=== PATIENT | female | born 1955 | race Caucasian/White ===

== ENCOUNTER 2016-12-29 16:24 | Emergency (ER) | payer BC, OTHER ==
[2016-12-29] MEDS ORDERED: Diphtheria,Pertussis(Acell),Tetanus Vaccine 0.5 ML SDV IM ONE (16:29)
[2016-12-29] MEDS ORDERED: Sodium Chloride 0.9% 1,000 ML IV SCH (16:45)
[2016-12-29] MEDS ORDERED: Lidocaine 1% 20 ML MDV INJECT ONE (16:55)
[2016-12-29] MEDS ORDERED: Bacitracin Oint 1 GM U/D Packet TOP ONE (16:55)
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
[2016-12-29 19:54] VITALS: BP 112/51
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
--- NOTE | 2016-12-31 08:46 | CR ---
Knee 1V or 2V Rt HISTORY: Swelling COMPARISON: None FINDINGS: No fracture or effusion. Minimal chondrocalcinosis in the medial and lateral compartment. N o bony destructive process.
== END 2016-12-29 19:57 | disposition home or self-care (01) ==
LOC: JP.ED 16:24
DX: S42.022A Displaced fracture of shaft of left clavicle, initial encounter for closed fracture (principal); S01.81XA Laceration without foreign body of other part of head, initial encounter; S80.01XA Contusion of right knee, initial encounter; F10.929 Alcohol use, unspecified with intoxication, unspecified; F17.210 Nicotine dependence, cigarettes, uncomplicated; Z79.899 Other long term (current) drug therapy; Z23 Encounter for immunization; V87.7XXA Person injured in collision between other specified motor vehicles (traffic), initial encounter
CPT/HCPCS: 12054; 36415; 70450; 71010; 72125; 73000; 73030; 73560; 80053; 85025; 90471; 90715; 96360; 96361; 99284; A4217; G0480; J7040

== ENCOUNTER 2018-06-09 06:16 | Day surgery (SDC) | payer BC ==
[2018-06-09] MEDS ORDERED: Lactated Ringers 1,000 ML IV SCH (07:00)
[2018-06-09] MEDS ORDERED: Propofol 200 MG/20 ML SDV ONE ×2 (07:30→07:54)
[2018-06-09] MEDS ORDERED: fentaNYL 100 MCG/2 ML SDV ONE (07:31)
[2018-06-09] MEDS ORDERED: Midazolam 1 MG/ML 2 ML SDV ONE (07:31)
[2018-06-09 09:17] VITALS: BP 130/75
--- NOTE | 2018-06-12 13:44 | OR ---
DATE OF PROCEDURE: 06/09/2018 PREOPERATIVE DIAGNOSIS: History of colon polyps. POSTOPERATIVE DIAGNOSES: Small polyp 25 cm from the anal verge, diverticulosis , history of colon polyps. PROCEDURE PERFORMED: Colonoscopy to the cecum with biopsy resection of small polyp 25 cm from the anal verge. SURGEON: Abner Laguna MD ANESTHESIA: IV anesthesia with monitored anesthesia care. INDICATION: This 62-year-old white female is referred for a colonoscopy. She has history of colon polyps. She is suppose to have colonoscopic exams every 5 years, but she says the last one was 10 years ago. I counseled her for the procedure, including risks and alternatives, and she gave her informed consent to proceed. DESCRIPTION OF PROCEDURE: The patient was placed in the left lateral decubitus position. IV anesthesia was administered by the Anesthesia Service. Time-out was held. A rectal exam was performed, which was unremarkable. The flexible video Olympus colonoscope was introduced through her anus, up her rectum, and out her colon all the way to the cecum. To accomplish this, we did apply a little abdominal compression. En route, we saw a few scattered left-sided diverticula. There was no bleeding or inflammation associated with them. Once the cecum was reached, the scope was slowly withdrawn, examining the mucosa throughout. No additional mucosal abnormalities were noted until we reached 25 cm from the anal verge. Here, a small polyp was seen, which was removed with the biopsy forceps. The scope was brought back in the rectum, where it was retroflexed. The distal rectum was unremarkable except for some hemorrhoidal tissue. The scope was straightened and removed. She tolerated the procedure well. Abner Laguna MD /[id number] MTDD
== END 2018-06-09 09:15 | disposition home or self-care (01) ==
LOC: JP.SDS 06:16
PROVIDERS: ATTEND Surgery
DX: Z12.11 Encounter for screening for malignant neoplasm of colon (principal); K57.30 Diverticulosis of large intestine without perforation or abscess without bleeding; K63.89 Other specified diseases of intestine; E78.00 Pure hypercholesterolemia, unspecified; F17.200 Nicotine dependence, unspecified, uncomplicated; F41.9 Anxiety disorder, unspecified; Z88.6 Allergy status to analgesic agent; Z86.010 Personal history of colon polyps
CPT/HCPCS: 45380; 88305; J2250; J2704; J3010; J7120

== ENCOUNTER 2018-12-17 11:42 | Emergency (ER) | payer MEDICARE, BC ==
[2018-12-17] MEDS ORDERED: HYDROmorphone 0.5 MG/0.5 ML Syringe IVPUSH ONE ×2 (11:56→12:14)
[2018-12-17] MEDS ORDERED: Sodium Chloride 0.9% 10 ML Syringe FLUSH PRN (11:56)
--- NOTE | 2018-12-17 11:59 | EDM.PDOC ---
ED HPI GENERAL MEDICAL PROBLEM - General Stated Complaint: FELL ON ICE WHILE WALKING DOG Time Seen by Provider: 12/17/18 11:55 Source of Information: Reports: Patient History Limitations: Reports: No Limitations - History of Present Illness INITIAL COMMENTS - FREE TEXT/NARRATIVE: 63 yo female presents to ER for acute left wrist fracture after fall this afternoon while walking the dog. The leash jerk and patient fell on outstretched left hand. Patient is right handed. Patient denies hitting her head or any additional injuries or concerns. Patient has been able to walk without difficulty. Patient denies previous injury or surgery involving left wrist. Multiple other orthopedic surgeries in the past. Patient is on Gabapentin but no recent change medication dosing. Patient is on Naltrexone but only as needed and last dose was a few days ago. Narcotic pain medication may not be as effective was explained to patient. - Related Data Allergies Allergy/AdvReac Type Severity Reaction Status Date / Time aspirin AdvReac Abdominal Verified 12/17/18 12:15 Pain Home Meds: Home Meds FLUoxetine [PROzac] 40 mg PO DAILY 12/23/15 [History] Simvastatin [Zocor] 10 mg PO BEDTIME 12/23/15 [History] traZODone 100 mg PO BEDTIME 12/23/15 [History] Gabapentin [Neurontin] 300 - 600 mg PO TID 02/01/18 [History] Multivit with Iron,Minerals [Spectravite Senior] 1 each PO DAILY 02/01/18 [ History] Naltrexone 1 tab PO DAILY 02/01/18 [History] Rutin/Hesp/Bioflav/C/Herb#196 [Bioflex] 1 each PO DAILY 02/01/18 [History] Ascorbic Acid [Acerola C] 240 mg PO DAILY 06/07/18 [History] Cholecalciferol (Vitamin D3) [Vitamin D3] 3,000 unit PO DAILY 06/07/18 [History] Lactobac Cmb #3/Fos/Pantethine [Probiotic & Acidophilus] 1 each PO DAILY [History] Acetaminophen/oxyCODONE [Percocet 325-5 MG] 1 - 2 each PO Q6H PRN 5 Days #20 tab 12/17/18 [Rx] Past Medical History HEENT History: Reports: Impaired Vision Cardiovascular History: Reports: High Cholesterol Respiratory History: Reports: None Gastrointestinal History: Reports: None, Colon Polyp Genitourinary History: Reports: None 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 left shoulder pain. right shoulder pain Neurological History: Reports: None Psychiatric History: Reports: Addiction, Anxiety, Depression, OCD Endocrine/Metabolic History: Reports: Osteopenia Hematologic History: Reports: Blood Transfusion(s) Immunologic History: Reports: None Oncologic (Cancer) History: Reports: None Dermatologic History: Reports: None - Infectious Disease History Infectious Disease History: Reports: Chicken Pox, Measles, Mumps - Past Surgical History HEENT Surgical History: Reports: None Cardiovascular Surgical History: Reports: None GI Surgical History: Reports: Colonoscopy Female Surgical History: Reports: Tubal Ligation Endocrine Surgical History: Reports: None Musculoskeletal Surgical History: Reports: Hip Replacement, Shoulder Surgery Social & Family History - Caffeine Use Caffeine Use: Reports: Coffee Review of Systems - Review of Systems Review Of Systems: ROS reveals no pertinent complaints other than HPI. ED EXAM, GENERAL - Physical Exam Exam: See Below Exam Limited By: No Limitations General Appearance: Alert, WD/WN, Severe Distress Eye Exam: Bilateral Eye: EOMI, PERRL Ears: Normal External Exam, Normal Canal, Hearing Grossly Normal Nose: Normal Inspection, Normal Mucosa Throat/Mouth: Normal Inspection, Normal Lips, Normal Teeth, Normal Voice Head: Atraumatic, Normocephalic Neck: Normal Inspection, Supple, Non-Tender, Full Range of Motion Respiratory/Chest: No Respiratory Distress, Lungs Clear, Normal Breath Sounds, No Accessory Muscle Use, Chest Non-Tender Cardiovascular: Normal Peripheral Pulses, Regular Rate, Rhythm, No Edema, No Gallop, No JVD, No Murmur, No Rub Peripheral Pulses: 4+: Radial (L) Extremities: Arm Pain (Left wrist with obvious volar displaced distal radius and ulnar fracture noted. Skin intact. Normal sensation. ) Neurological: Alert, Oriented, CN II-XII Intact, Normal Cognition, Normal Gait, Normal Reflexes, No Motor/Sensory Deficits Psychiatric: Normal Affect, Normal Mood Skin Exam: Warm, Dry, Intact, Normal Color, No Rash ED TRAUMA EXTREMITY PROCEDURES - Joint Reduction Site: Other (left distal radius and ulnar fracture reduction. ) Sedation: Hematoma/Fracture Block Local Anesthesia - Bupivicaine (Marcaine): 0.5% Plain Local Anesthetic Volume: Other (15) Pre-Procedure NV Status: Normal Post-Procedure NV Status: Normal Technique: Traction/Counter Traction, Other (finger traps) Number of Attempts: 1 Post-Reduction Imaging: Acceptably Reduced Joint Reduction Complications: No Progress/Comments: Sugar tong splint applied. Post Reduction films reviewed. - Splinting Left Upper Extremity Pre-Procedure NV Status: Normal (good radial pulse noted. Good papillary refill) Post-Procedure NV Status: Normal Splint Material: Fiberglass Splint Design: Sugar Tong Applied & Form Fitted By: Provider Provider Post-Splint Application NV Check: NV Status Normal, Good Position ( psot reduction film completed ), Other (sling (patient's own) ) Complications: No - Additional/Other Procedure(s) Other (Free Text) Procedure(s): HEMATOMA BLOCK Left Wrist for Acute Colles fracture of distal radius and ulna. Sensorcaine 0.5% with Epi: 15 cc injected using a 25G 1 1/2 in needle. Area was Prepped with Betadine. Anesthetic was instilled in to the area with drawing back intermittently and advancing over the fracture lines of the distal radius and ulna. Patient noted increased pain with pressure over the injured area but pain improve slightly within 2-3 minutes. Course - Vital Signs Last Recorded V/S: Last Vital Signs Temp 36.0 C 12/17/18 12:22 Pulse 71 12/17/18 12:22 Resp 16 12/17/18 12:22 BP 118/57 L 12/17/18 12:22 Pulse Ox 98 12/17/18 12:22 - Orders/Labs/Meds Orders: Active Orders 24 hr Category Date Time Status Peripheral IV Care [RC] . DIRECTED Care 12/17/18 11:56 Active Wrist Comp Min 3V Lt [CR] Stat Exams 12/17/18 14:40 Ordered Acetaminophen/oxyCODONE [Percocet 325-5 MG] Med 12/17/18 14:41 Ordered 2 tab PO ONETIME PRN Sodium Chloride 0.9% [Saline Flush] Med 12/17/18 11:56 Active 10 ml FLUSH ASDIRECTED PRN Peripheral IV Insertion Adult [OM.PC] Urgent Oth 12/17/18 11:56 Ordered Medication Orders Sodium Chloride (Saline Flush) 10 ml FLUSH ASDIRECTED PRN PRN Reason: Keep Vein Open Last Admin: 12/17/18 12:37 Dose: 10 ml Meds: Medications Generic Name Dose Route Start Last Admin Trade Name Freq PRN Reason Stop Dose Admin Sodium Chloride 10 ml 12/17/18 11:56 12/17/18 12:37 Saline Flush FLUSH 10 ml ASDIRECTED PRN Administration Keep Vein Open Discontinued Medications Generic Name Dose Route Start Last Admin Trade Name Freq PRN Reason Stop Dose Admin Bupivacaine HCl/Epinephrine Bitart 50 ml 12/17/18 12:01 12/17/18 12:37 Marcaine 0.5%/Epinephrine 1:200,000 NERVRT 12/17/18 12:02 50 ml ONETIME ONE Administration Hydromorphone HCl 0.5 mg 12/17/18 11:56 12/17/18 12:37 Dilaudid IVPUSH 12/17/18 11:57 0.5 mg ONETIME ONE Administration Hydromorphone HCl 0.5 mg 12/17/18 12:14 12/17/18 12:37 Dilaudid IVPUSH 12/17/18 12:15 0.5 mg ONETIME ONE Administration Ketorolac Tromethamine 15 mg 12/17/18 12:15 12/17/18 12:37 Toradol IVPUSH 12/17/18 12:16 15 mg ONETIME ONE Administration - Re-Assessments/Exams Free Text/Narrative Re-Assessment/Exam: Contacted available Orthopedist regarding patient presentation with severely displaced wrist fracture which will likely need surgical intervention. Fracture reduction in ER and closed follow-up advised. 12/17/18 13:25 Much improved post reduction alignment noted. Pain is much improved with splinting and pain medications. 12/17/18 15:00 Departure - Departure Time of Disposition: 15:00 Disposition: Home, Self-Care 01 Clinical Impression: Fracture of radius and ulna, Fall - Discharge Information Prescriptions: Acetaminophen/oxyCODONE [Percocet 325-5 MG] 1 - 2 each PO Q6H PRN 5 Days #20 tab PRN Reason: pain Instructions: Cast or Splint Care, Adult, Wrist Fracture Treated With Immobilization, [id number] Referrals: Sary Avila CNM [Primary Care Provider] - Taz Park MD [Physician] - 2 Days (Call Office Tuesday am for appointment and possible surgery on Tuesday. Nothing to eat or drink after 12am on Tuesday for possible surgey. Follow clinic instructions. ) Forms: ED Department Discharge Additional Instructions: 1. Keep left arm elevated above heart as much as possible. 2. Percocet 1-2 tablets every 6 hours as needed for moderate to severe pain. 3. Ice 15-20minutes 3-4 times per day. 4. Call Orthopedic clinic Dr Park on Tuesday for follow-up and possible surgery on Tuesday (depending on schedule and specialist evaluation). 5. Return to ER if worsening pain or not controlled with medications given or new concerns. - Problem List & Annotations (1) Fall SNOMED Code(s): 2423245, 533964186 Code(s): W19.XXXA - UNSPECIFIED FALL, INITIAL ENCOUNTER Status: Acute Current Visit: Yes (2) Fracture of radius and ulna SNOMED Code(s): 67615471 Code(s): S52.90XA - UNSP FRACTURE OF UNSP FOREARM, INIT FOR CLOS FX; S52.209A - UNSP FRACTURE OF SHAFT OF UNSP ULNA, INIT FOR CLOS FX Status: Acute Current Visit: Yes - My Orders Last 24 Hours: My Active Orders 12/17/18 11:56 Peripheral IV Care [RC] . DIRECTED Sodium Chloride 0.9% [Saline Flush] 10 ml FLUSH ASDIRECTED PRN Peripheral IV Insertion Adult [OM.PC] Urgent 12/17/18 14:40 Wrist Comp Min 3V Lt [CR] Stat 12/17/18 14:41 Acetaminophen/oxyCODONE [Percocet 325-5 MG] 2 tab PO ONETIME PRN - Assessment/Plan Last 24 Hours: My Active Orders 12/17/18 11:56 Peripheral IV Care [RC] . DIRECTED Sodium Chloride 0.9% [Saline Flush] 10 ml FLUSH ASDIRECTED PRN Peripheral IV Insertion Adult [OM.PC] Urgent 12/17/18 14:40 Wrist Comp Min 3V Lt [CR] Stat 12/17/18 14:41 Acetaminophen/oxyCODONE [Percocet 325-5 MG] 2 tab PO ONETIME PRN
[2018-12-17] MEDS ORDERED: Bupivacaine 0.5%/EPINEPHrine 1:200,000 50 ML MDV NERVRT ONE (12:01)
[2018-12-17] MEDS ORDERED: Ketorolac 30 MG/ML SDV IVPUSH ONE (12:15)
[2018-12-17 12:46] VITALS: BP 118/57; PULSE 71
--- NOTE | 2018-12-17 14:02 | CRLCR ---
Indication: Fall with obvious displaced fracture. Technique: Left wrist three views. Comparison: Left forearm same day. Findings: There is a comminuted impacted intra-articular and dorsally displaced fracture of the distal radius and dorsally displaced fracture of the ulnar styloid. No additional evidence of fracture. Moderate degenerative changes of the 1st carpal metacarpal joint. Diffuse soft tissue swelling about the wrist. No radiopaque foreign body. Impression: Comminuted dorsally displaced fracture of the distal radius and dorsally displaced fracture of the ulnar styloid. Dictated by Jonh Cotter MD @ Dec 17 2018 1:59PM Signed by Dr. John Cotter @ Dec 17 2018 2:01PM
--- NOTE | 2018-12-17 14:20 | CRLCR ---
Indication: Fall with obvious fracture. Technique: Left forearm two views. Comparison: Left wrist same day. Findings: Comminuted impacted intra-articular and dorsally displaced fracture of the distal radius with associated proximal migration of the distal fracture fragment is again demonstrated. Dorsally displaced fracture of the ulnar styloid, as before. The proximal left forearm shows no acute osseous abnormality. Mild degenerative changes of the ulnohumeral joint. Degenerative changes of the wrist, as before. Soft tissue swelling about the wrist. No radiopaque foreign body. Impression: Comminuted dorsally displaced fracture of the distal radius and dorsally displaced fracture of the ulnar styloid. Dictated by Jonh Cotter MD @ Dec 17 2018 2:16PM Signed by Dr. Jonh Cotter @ Dec 17 2018 2:18PM
[2018-12-17] MEDS ORDERED: Acetaminophen/oxyCODONE 325-5 MG Tab PO PRN (14:41)
--- NOTE | 2018-12-17 15:14 | CRLCR ---
Indication: Fracture post reduction. Technique: Left wrist three views. Comparison: Left wrist same day. Findings: Casting material obscures fine bone detail. Dorsal displacement/angulation of comminuted distal radius fracture persists but has improved status post reduction. Near anatomic alignment of ulnar styloid fracture. No new osseous abnormality demonstrated. Impression: Dorsal displacement/angulation of distal radius fracture persists but has improved status post reduction. Dictated by Jonh Cotter MD @ Dec 17 2018 3:11PM Signed by Dr. Jonh Cotter @ Dec 17 2018 3:13PM
== END 2018-12-17 15:21 | disposition home or self-care (01) ==
LOC: JP.ED 11:42
DX: S52.572A Other intraarticular fracture of lower end of left radius, initial encounter for closed fracture (principal); S52.612A Displaced fracture of left ulna styloid process, initial encounter for closed fracture; Z88.6 Allergy status to analgesic agent; Z79.899 Other long term (current) drug therapy; W19.XXXA Unspecified fall, initial encounter
CPT/HCPCS: 25605; 73090; 73110; 96374; 96375; 99283; A9270; J1170; J1885; J3490; 25560

== ENCOUNTER 2020-10-27 05:18 | Day surgery (SDC) | payer MEDICARE ==
[2020-10-27] MEDS ORDERED: Lactated Ringers 1,000 ML IV SCH (06:00)
[2020-10-27] MEDS ORDERED: Nozin Nasal Sanitizer NASBOTH ONE (06:30)
[2020-10-27] MEDS ORDERED: Povidone-Iodine 10% Soln 118.25 ML Bottle ONE (06:39)
[2020-10-27] MEDS ORDERED: Propofol 200 MG/20 ML SDV ONE ×2 (07:20→08:15)
[2020-10-27] MEDS ORDERED: fentaNYL 100 MCG/2 ML SDV ONE (07:20)
[2020-10-27] MEDS ORDERED: Midazolam 1 MG/ML 2 ML SDV ONE (07:20)
[2020-10-27] MEDS ORDERED: ceFAZolin 2 GM in Premix Bag 1 BAG IV ONE (07:30)
[2020-10-27] MEDS ORDERED: Lactated Ringers 1,000 ML ONE (08:15)
[2020-10-27] MEDS ORDERED: Acetaminophen/HYDROcodone 325-5 MG Tab PO PRN (09:32)
[2020-10-27] MEDS ORDERED: Morphine 2 MG/ML SYRINGE IV PRN (09:32)
[2020-10-27] MEDS ORDERED: Acetaminophen 325 MG Tab PO PRN (09:32)
[2020-10-27] MEDS ORDERED: Gabapentin 300 MG Cap PO PRN (09:36)
[2020-10-27] MEDS ORDERED: Ketorolac 30 MG/ML SDV IVPUSH PRN (09:40)
[2020-10-27] MEDS ORDERED: Ondansetron 4 MG/2 ML SDV IVPUSH ONE (09:43)
[2020-10-27] MEDS ORDERED: ceFAZolin 1 GM in Sodium Chloride 0.9% 50 ML IV SCH (09:45)
--- NOTE | 2020-10-27 10:14 | CR ---
Pelvis 1V or 2V CLINICAL HISTORY: Total hip arthroplasty FINDINGS: Patient is status post recent right total hip arthroplasty. Components appear well seated. Left hip arthroplasty appears intact. IMPRESSION: Status post recent right total hip arthroplasty
[2020-10-27] MEDS ORDERED: Sodium Chloride 0.9% 1,000 ML IV SCH (11:30)
[2020-10-27] MEDS: ceFAZolin 1 GM in Premix Bag 1 BAG IV SCH ×2 (16:10→23:32)
[2020-10-27] MEDS: Acetaminophen/oxyCODONE 325-5 MG Tab PO PRN ×2 (17:35→21:24)
[2020-10-27] MEDS ORDERED: Docusate Sodium 100 MG Cap PO SCH (21:00)
[2020-10-27] MEDS ORDERED: ASCORBIC ACID 500 MG PO SCH (21:00)
[2020-10-27] MEDS: Docusate Sodium 100 MG Cap PO SCH (21:27)
[2020-10-27] MEDS: Nozin Nasal Sanitizer NASBOTH SCH (21:27)
[2020-10-28] MEDS: Acetaminophen/oxyCODONE 325-5 MG Tab PO PRN (02:50)
[2020-10-28] MEDS: Ondansetron 4 MG/2 ML SDV IVPUSH PRN ×2 (02:52→09:40)
[2020-10-28] MEDS: ceFAZolin 1 GM in Premix Bag 1 BAG IV SCH (07:39)
[2020-10-28] MEDS ORDERED: Acetaminophen/oxyCODONE 325-5 MG Tab PO PRN (08:01)
[2020-10-28] MEDS ORDERED: traMADol 50 MG Tab PO PRN (08:01)
[2020-10-28] MEDS ORDERED: Enoxaparin 30 MG/0.3 ML Syringe SUBCUT SCH ×2 (09:00)
[2020-10-28] MEDS ORDERED: FLUoxetine 20 MG Cap PO SCH ×2 (09:00)
[2020-10-28] MEDS: Nozin Nasal Sanitizer NASBOTH SCH (09:43)
[2020-10-28] MEDS: Docusate Sodium 100 MG Cap PO SCH (09:43)
[2020-10-28] MEDS ORDERED: Ondansetron 4 MG Tab.DIS PO PRN (09:48)
[2020-10-28] MEDS ORDERED: Acetaminophen 500 MG Tab PO PRN (11:38)
[2020-10-28 12:35] VITALS: BP 121/56; PULSE 77
--- NOTE | 2020-10-28 12:43 | PCM.DCSUM1 ---
Discharge Summary - Hospital Course Brief History: Patient is a pleasant 65 y/o female, history of right hip avascular necrosis. Symptoms refractory to conservative management and elected to undergo a right total hip arthroplasty. Does have history of left hip AVN and also underwent a left CAMACHO a few years prior. Right hip total arthroplasty was performed on 10/27/20. Patient tolerated surgery well with no complications. No acute events during post-operative hospitalization. Remained hemodynamically stable and is suitable for discharge to home. Diagnosis: Stroke: No Modified Spink Scale: No Symptoms at All Modified Spink Scale Score: 0 - Discharge Data Discharge Date: 10/28/20 Discharge Disposition: Home, Self-Care 01 Condition: Good - Referral to Home Health Date of Face to Face Encounter: 10/28/20 Reason for Homebound Status: motivated to go home, independent with transfers, a mbulation, and ADLs. Primary Care Physician: Sary Avila CNM - Discharge Diagnosis/Problem(s) (1) Status post total hip replacement, right SNOMED Code(s): 716070405497, [id number] ICD Code: Z96.641 - PRESENCE OF RIGHT ARTIFICIAL HIP JOINT Status: Acute Current Visit: Yes - Patient Summary/Data Consults: Consultations 10/27/20 09:32 Consult to Case Management/Woodwork Salvage Inspector [CONS] Routine Comment: Physician Instructions: Discharge placement post hip surgery Service(s) to be Consulted: Case Management Special Instructions: anticipate dc to home when medically stable with out patient PT PT Evaluation and Treatment [CONS] Routine Please Evaluate and Treat. PT Reason for Consult: Ambulation Special Instructions: posterior hip precautions, WBAT This query below is only for informational purposes and is not editable. PT Evaluation and Treatment [CONS] Routine Please Evaluate and Treat. PT Reason for Consult: Post op Ortho Surgery Hip Pending Discharge: Yes, 2- -3 days Special Instructions: Schedule first outpatient P.T. appointment 3 - 5 days post discharge This query below is only for informational purposes and is not editable. 10/27/20 09:35 OT Evaluation and Treatment [CONS] Routine Please Evaluate and Treat. OT Reason for Consult: ADL's Special Instructions: Status post Hip Surgery, WBAT on RLE This query below is only for informational purposes and is not editable. Hospital Course: Patient is a pleasant 65-year-old female, status post right total hip arthroplasty, post-op day #1. Patient tolerated surgery well with no complications. No acute events during the postoperative hospitalization period. Patient has remained hemodynamically stable. Postop day #1 hemoglobin declined to 10.6. Patient remains asymptomatic with this; denied lightheadedness, dizziness, nor vision changes. Patient also denied subjective fevers, chills, dyspnea, nor chest pain. Patient has had difficulty tolerating any oral pain medications without nausea. Trialed oral percocet, norco, and tramadol, all with nausea or emesis. Medication was paired with light food to reduce nausea/emesis, but co- administration of pain medication with food did not seem to reduce nausea and emesis side effects. Zofran was utilized prn. Transition was made to extra strength Tylenol and patient tolerated this medication without nausea/emesis and adequate pain control. Patient participated in physical and occupational therapy sessions daily while in the hospital. Patient's functional mobility of right lower extremity has imp roved throughout hospitalization. Demonstrated competency transferring from bed to chair independently. Ambulated 120 feet with four-wheel walker and standby assist. Demonstrated competency completing ADLs with minimal assistance and adaptive equipment. Moise catheter removed the evening of surgery. IV saline locked and dressing change performed on POD#1. Exam: Right posterior tibial pulse, 2+. Sensation to RLE impaired per patients baseline pre-operatively. Right hip incision well approximated and intact. Steri-Strips above incision with dried drainage. No surrounding erythema nor active drainage of incision. Ice pack on right hip, unable to accurately assess temperature. Diffuse edema of the right hip extending into thigh. No pedal edema. No palpable hematoma nor significant ecchymosis of right hip. Dorsiflexion: 4/5. Plantar flexion: 5/5. Calf is soft and supple. Negative homans sign. - Patient Instructions Diet: Regular Diet as Tolerated Activity: Apply Ice Driving: Do Not Drive Showering/Bathing: Shower in AM Wound/Incision Care: Keep Operative Site/Wound Site Clean and Dry Notify Provider of: Fever, Increased Pain, Swelling and Redness, Drainage - Discharge Plan *PRESCRIPTION DRUG MONITORING PROGRAM REVIEWED*: Yes *COPY OF PRESCRIPTION DRUG MONITORING REPORT IN PATIENT MARCELINO: Not Applicable Home Medications: Home Meds FLUoxetine [PROzac] 40 mg PO DAILY 12/23/15 [History] Simvastatin [Zocor] 10 mg PO BEDTIME 12/23/15 [History] traZODone 100 mg PO BEDTIME 12/23/15 [History] Gabapentin [Neurontin] 300 - 600 mg PO TID PRN 02/01/18 [History] Ascorbic Acid [Acerola C] 1,000 mg PO BID 06/07/18 [History] Cholecalciferol (Vitamin D3) [Vitamin D3] 3,000 unit PO DAILY 06/07/18 [History] Biotin 5,000 mcg PO DAILY 08/08/20 [History] Calcium Carbonate [Calcium] 500 mg PO DAILY 08/08/20 [History] Vitamin A Palmitate [Vitamin A] 10,000 unit PO DAILY 08/08/20 [History] Vitamin B6-pyridOXINE 200 mg PO DAILY 08/08/20 [History] Vitamin E 400 unit PO DAILY 08/08/20 [History] Zinc 100 mg PO DAILY 08/08/20 [History] Lactobacillus 3/Fos/Pantethine [Probiotic & Acidophilus] 1 cap PO DAILY 10/22/20 [History] Rutin/Hesp/Bioflav/C/[id number] [Bioflex] 1 tab PO BID 10/22/20 [History] Oxygen Therapy Mode: Room Air Patient Handouts: Preventing Problems After Surgery, How to Prevent Constipation After Surgery Referrals: Jane Khan PA [Ordering Only Provider] - 11/11/20 9:00 am (Please arrive 15 minutes early to register for your appointment.) Jack Chandra PT [Consulting Physician] - 11/03/20 2:00 pm (Please arrive 15 minutes early to register for your appointment.) - Discharge Summary/Plan Comment DC Time >30 min.: No Total # of Minutes for Discharge Time: 20 Discharge Summary/Plan Comment: -Discharge to home this afternoon. Outpatient physical therapy has been arranged. -Patient may continue with extra strength Tylenol for pain control -Educated patient on warning signs of DVT/VTE and SSI; any concerns, she should contact the clinic or visit her local ER -Discussed Lovenox vs aspirin for DVT/VTE prophylaxis therapy; patient wishes to take aspirin BID. Recommended enteric coated to prevent GI upset. Patient expressed understanding. -Continue with Nozin spray BID -May shower; leave Steristrips on and let water run over the top. They will fall off in 5-7 days. Do not vigorously scrub incision, no submerging incision in bath water. Do not need to place dressing over incision, but may choose to do so if Steristrips are catching on clothing. -Follow up with orthopedics in 2 weeks; contact clinic with any concerns or questions that arise prior to scheduled apt. - General Info Date of Service: 10/28/20 Admission Dx/Problem (Free Text: status post right total hip arthroplasty Functional Status: Reports: Pain Controlled, Tolerating Diet, Ambulating (with FWW ) - Review of Systems General: Denies: Fever, Fatigue, Chills Pulmonary: Denies: Shortness of Breath Cardiovascular: Denies: Chest Pain Gastrointestinal: Reports: Nausea (present this morning, since resolving ), Vomiting (present this morning, since resolving ) Genitourinary: Reports: No Symptoms Musculoskeletal: Reports: Leg Pain (right ), Joint Pain (right hip ) Skin: Reports: No Symptoms Neurological: Reports: No Symptoms Psychiatric: Reports: No Symptoms - Patient Data Vitals - Most Recent: Last Vital Signs Temp 98.3 F 10/28/20 12:33 Pulse 77 10/28/20 12:33 Resp 18 10/28/20 12:33 BP 121/56 L 10/28/20 12:33 Pulse Ox 96 10/28/20 12:33 Weight - Most Recent: 136 lb 3.19 oz I&O - Last 24 hours: Intake & Output 10/27/20 10/28/20 10/28/20 22:59 06:59 14:59 Intake Total 2702 900 Output Total 300 300 Balance 2402 900 -300 Lab Results - Last 24 hrs: Laboratory Results - last 24 hr 10/28/20 Range/Units 05:54 WBC 8.6 (4.5-11.0) K/uL RBC 3.70 (3.30-5.50) M/uL Hgb 10.6 L (12.0-15.0) g/dL Hct 33.6 L (36.0-48.0) % MCV 91 (80-98) fL MCH 29 (27-31) pg MCHC 32 (32-36) % Plt Count 182 (150-400) K/uL Med Orders - Current: Current Medications Acetaminophen (Acetaminophen 500 Mg Tab) 1,000 mg PO Q6H PRN PRN Reason: Pain Last Admin: 10/28/20 12:32 Dose: 1,000 mg Documented by: Hydrocodone Bitart/Acetaminophen (Acetaminophen/Hydrocodone 325-5 Mg Tab) 1 tab PO Q4H PRN PRN Reason: Pain (moderate 4-6) Last Admin: 10/27/20 13:26 Dose: 1 tab Documented by: Bandage/Support Products (Nozin Nasal Ladies Attendant) 1 applic NASBOTH BID [facility] Stop: 11/03/20 21:01 Last Admin: 10/28/20 09:43 Dose: 1 applic Documented by: Docusate Sodium (Docusate Sodium 100 Mg Cap) 100 mg PO BID [facility] Last Admin: 10/28/20 09:43 Dose: 100 mg Documented by: Enoxaparin Sodium (Enoxaparin 30 Mg/0.3 Ml Syringe) 30 mg SUBCUT DAILY [facility] Last Admin: 10/28/20 09:43 Dose: 30 mg Documented by: Fluoxetine HCl (Fluoxetine 20 Mg Cap) 40 mg PO DAILY [facility] Last Admin: 10/28/20 09:43 Dose: 40 mg Documented by: Gabapentin (Gabapentin 300 Mg Cap) 300 mg PO TID PRN PRN Reason: Anxiety Ketorolac Tromethamine (Ketorolac 30 Mg/Ml Sdv) 15 mg IVPUSH Q8H PRN PRN Reason: Breakthrough Pain Stop: 10/31/20 09:41 Last Admin: 10/27/20 12:13 Dose: 15 mg Documented by: Morphine Sulfate (Morphine 2 Mg/Ml Syringe) 1 mg IV Q1H PRN PRN Reason: Breakthrough Pain Ondansetron HCl (Ondansetron 4 Mg Tab.Dis) 4 mg PO Q6H PRN PRN Reason: Nausea/Vomiting Oxycodone/Acetaminophen (Acetaminophen/Oxycodone 325-5 Mg Tab) 1 tab PO Q4H PRN PRN Reason: Pain Tramadol HCl (Tramadol 50 Mg Tab) 50 mg PO Q4H PRN PRN Reason: Pain Last Admin: 10/28/20 08:15 Dose: 50 mg Documented by: Discontinued Medications Acetaminophen (Acetaminophen 325 Mg Tab) 650 mg PO Q4H PRN PRN Reason: Pain/Fever Bandage/Support Products (Nozin Nasal Ladies Attendant) 1 applic NASBOTH ONETIME ONE Stop: 10/27/20 06:31 Last Admin: 10/27/20 06:32 Dose: 1 applic Documented by: Docusate Sodium (Docusate Sodium 100 Mg Cap) 100 mg PO BID [facility] Enoxaparin Sodium (Enoxaparin 30 Mg/0.3 Ml Syringe) 30 mg SUBCUT DAILY [facility] Fentanyl (Fentanyl 100 Mcg/2 Ml Sdv) Confirm Administered Dose 100 mcg .ROUTE .STK-MED ONE Stop: 10/27/20 07:21 Fluoxetine HCl (Fluoxetine 20 Mg Cap) 40 mg PO DAILY [facility] Cefazolin Sodium/Dextrose 2 gm (/ Premix) 50 mls @ 100 mls/hr IV ONETIME ONE Stop: 10/27/20 07:59 Last Admin: 10/27/20 07:53 Dose: 100 mls/hr Documented by: Lactated Ringer's (Ringers, Lactated) 1,000 mls @ 75 mls/hr IV ASDIRECTED [facility] Last Infusion: 10/27/20 12:02 Dose: Infused Documented by: Lactated Ringer's (Ringers, Lactated) Confirm Administered Dose 1,000 mls @ as directed .ROUTE .ST-[facility] ONE Stop: 10/27/20 08:16 Cefazolin Sodium 1 gm/ Sodium (Chloride) 50 mls @ 200 mls/hr IV Q8H [facility]NA Stop: 10/28/20 01:59 Last Admin: 10/27/20 10:45 Dose: Not Given Documented by: Cefazolin Sodium/Dextrose 1 gm (/ Premix) 50 mls @ 100 mls/hr IV Q8H [facility] Stop: 10/28/20 08:29 Last Admin: 10/28/20 07:39 Dose: 100 mls/hr Documented by: Sodium Chloride (Normal Saline) 1,000 mls @ 125 mls/hr IV ASDIRECTED [facility] Last Admin: 10/27/20 12:13 Dose: 125 mls/hr Documented by: Midazolam HCl (Midazolam 1 Mg/Ml 2 Ml Sdv) Confirm Administered Dose 2 mg .ROUTE .STK-MED ONE Stop: 10/27/20 07:21 Non-Formulary Medication (Ascorbic Acid [Acerola C]) 1,000 mg PO BID [facility] Ondansetron HCl (Ondansetron 4 Mg/2 Ml Sdv) 4 mg IVPUSH Q6H PRN PRN Reason: Nausea/Vomiting Last Admin: 10/28/20 09:40 Dose: 4 mg Documented by: Ondansetron HCl (Ondansetron 4 Mg/2 Ml Sdv) 4 mg IVPUSH ONETIME ONE Stop: 10/27/20 09:44 Last Admin: 10/27/20 09:49 Dose: 4 mg Documented by: Oxycodone/Acetaminophen (Acetaminophen/Oxycodone 325-5 Mg Tab) 1 - 2 tab PO Q4H PRN PRN Reason: Pain Last Admin: 10/28/20 02:50 Dose: 2 tab Documented by: Povidone Iodine (Povidone-Iodine 10% Soln 118.25 Ml Bottle) Confirm Administered Dose 1 ml .ROUTE .STK-MED ONE Stop: 10/27/20 06:40 Last Admin: 10/27/20 14:10 Dose: 40 ml Documented by: Propofol (Propofol 200 Mg/20 Ml Sdv) Confirm Administered Dose 200 mg .ROUTE .STK-MED ONE Stop: 10/27/20 07:21 Propofol (Propofol 200 Mg/20 Ml Sdv) Confirm Administered Dose 200 mg .ROUTE .STK-MED ONE Stop: 10/27/20 08:16 - Exam Quality Assessment: Reports: DVT Prophylaxis General: Reports: Alert, Oriented, Cooperative, No Acute Distress Extremities: Non-Tender, No Pedal Edema, Leg Pain (right ), Limited Range of Motion. No: Ayad's Sign Skin: Reports: Dry, Intact Wound/Incisions: Reports: Healing Well, Dressing Dry and Intact, No Drainage Neurological: Reports: No New Focal Deficit Psy/Mental Status: Reports: Alert, Normal Affect, Normal Mood
--- NOTE | 2020-11-11 07:54 | OR ---
DATE OF PROCEDURE: 10/27/2020 SURGEON: Taz Park MD PREOPERATIVE DIAGNOSES: 1. Avascular necrosis, right femoral head. 2. Osteoarthritis, right hip. POSTOPERATIVE DIAGNOSES: 1. Avascular necrosis, right femoral head. 2. Osteoarthritis, right hip. PROCEDURE: Right total hip arthroplasty utilizing Ros M/L taper stem size 11, 52 mm trabecular metal Continuum cup, and a -3.5 mm x 32 mm femoral head. COMMUNICATIONS TECHNICIAN: PRIYANKA Andersen ANESTHESIA: Spinal with sedation. INDICATIONS: Angela is a 65-year-old female with a history of progressive pain in her right hip over the past several months. She has a history of avascular necrosis of her left hip which went on to significant collapse requiring a left total hip arthroplasty. She is now starting to experience similar symptoms in her right hip, and x-ray and MRI confirmed an area of avascular necrosis with early DJD. She now presents for right total hip arthroplasty. Risks, benefits, and potential complications of the procedure were discussed. community program assistant surgical services of physician graduate assistant athletic trainer were utilized during this case for skilled retraction, exposure, manipulation of the leg, reduction, and wound closure. PROCEDURE IN DETAIL: After adequate anesthesia was obtained, the patient was placed in the lateral decubitus position and secured with the hip positioner. All bony prominences were well padded. Right hip and leg were prepped and draped in a sterile fashion. The limb length was noted in the decubitus position. An incision was made over the greater trochanter and carried down through the subcutaneous tissues. Hemostasis was obtained with electrocautery. IT band and tensor fascia were split in line with her fibers, and a Charnley retractor was placed. The leg was internally rotated. The short external rotators were taken off the greater trochanter with electrocautery. The capsule was entered. Capsule was split in a T-fashion. Small effusion was present. The hip was dislocated revealing a small area of depression corresponding with the underlying AVN. Femoral neck was resected with an oscillating saw. Retractors were placed about the acetabulum, and the acetabular labrum was resected. Soft tissues were cleared from the central acetabulum, which was sequentially reamed to 52 mm. This was not a very good subchondral bone. A 52 mm trabecular metal continuum cup was press-fit into place. An additional fixation was obtained with a single acetabular screw. This was irrigated and a polyethylene liner was snapped into position. Attention was returned to the femur. A box osteotome was used to remove the lateral femoral neck cortex. A hand awl was placed down the canal and the canal was sequentially broached to a size 11 stem. This was left in place and trial reductions were then done with a -3.5 and a 0 neck length. This provided excellent stability. Trials were removed and the M/L taper stem was pressed into position. This sat just slightly more proud than the trial, and a trial reduction was then done with a -3.5 neck length. This had very good stability and appeared to recreate limb length without lengthening. The trial was removed. The trunnion was cleared, and the ceramic head was placed onto the neck, tapped into position and then reduced. The hip was irrigated with a pulse lavage followed by a dilute Betadine irrigation which was left in place for 2.5 minutes followed by pulse lavage. The posterior capsule was closed with #2 Ethibond. Piriformis was reattached to greater trochanter with #2 Ethibond, and the tensor fascia was then closed with Ethibond in a running locking fashion. The skin was closed with 2-0 Vicryl and a running 3-0 Monocryl. Steri-Strips were applied. Sterile dressing was then placed. The patient tolerated the procedure well and was taken from the operating room in stable condition. Taz Park MD /[id number]
== END 2020-10-28 17:00 | disposition home or self-care (01) ==
LOC: JP.MS 05:18 → UNDOADMIN 05:18 → JP.SDS 05:18 → EDSTATUS 07:30 → JP.MS 10:10 → JP.SDS 10-28 17:00 → UNDODISIN 10-28 17:00
PROVIDERS: ATTEND Specialist
DX: M16.11 Unilateral primary osteoarthritis, right hip (principal); M87.851 Other osteonecrosis, right femur; I25.2 Old myocardial infarction; F17.210 Nicotine dependence, cigarettes, uncomplicated; E78.5 Hyperlipidemia, unspecified; Z01.812 Encounter for preprocedural laboratory examination; Z79.899 Other long term (current) drug therapy; Z20.822 Contact with and (suspected) exposure to COVID-19
CPT/HCPCS: 27130; 36415; 72170; 85027; 86850; 86900; 86901; 88304; 88311; 94762; 97110; 97162; 97165; 97530; 97535; A9270; C1713; C1776; J0690; J1650; J1885; J2250; J2405; J2704; J3010; J7030; J7120; U0002

== ENCOUNTER 2020-12-17 22:53 | Emergency (ER) | payer MEDICARE ==
[2020-12-17 22:59] VITALS: BP 148/40; PULSE 93
--- NOTE | 2020-12-17 23:10 | EDM.PDOC ---
ED HPI GENERAL MEDICAL PROBLEM - General Chief Complaint: Lower Extremity Injury/Pain Stated Complaint: MEDICAL [facility]IA [facility] Time Seen by Provider: 12/17/20 23:10 Source of Information: Reports: Patient, EMS History Limitations: Reports: No Limitations - History of Present Illness INITIAL COMMENTS - FREE TEXT/NARRATIVE: pt had a rt total hip done on Oct [address] Rockwell. Pt was drinking tonight and she went off the door step and landed on her rt hip. Onset: Today, Sudden Duration: Minutes: Location: Reports: Lower Extremity, Right Associated Symptoms: Reports: No Other Symptoms Right Hip Pain Score (Numeric/FACES): 8 - Related Data Allergies Allergy/AdvReac Type Severity Reaction Status Date / Time aspirin AdvReac Abdominal Verified 12/17/20 23:02 Pain Home Meds: Home Meds FLUoxetine [PROzac] 40 mg PO DAILY 12/23/15 [History] Simvastatin [Zocor] 10 mg PO BEDTIME 12/23/15 [History] traZODone 100 mg PO BEDTIME 12/23/15 [History] Gabapentin [Neurontin] 300 - 600 mg PO TID PRN 02/01/18 [History] Ascorbic Acid [Acerola C] 1,000 mg PO BID 06/07/18 [History] Cholecalciferol (Vitamin D3) [Vitamin D3] 3,000 unit PO DAILY 06/07/18 [History] Biotin 5,000 mcg PO DAILY 08/08/20 [History] Calcium Carbonate [Calcium] 500 mg PO DAILY 08/08/20 [History] Vitamin A Palmitate [Vitamin A] 10,000 unit PO DAILY 08/08/20 [History] Vitamin B6-pyridOXINE 200 mg PO DAILY 08/08/20 [History] Vitamin E 400 unit PO DAILY 08/08/20 [History] Zinc 100 mg PO DAILY 08/08/20 [History] Lactobacillus 3/Fos/Pantethine [Probiotic & Acidophilus] 1 cap PO DAILY 10/22/20 [History] Rutin/Hesp/Bioflav/C/Puxlcl339 [Bioflex] 1 tab PO BID 10/22/20 [History] Past Medical History HEENT History: Reports: Impaired Vision Cardiovascular History: Reports: High Cholesterol Respiratory History: Reports: None Gastrointestinal History: Reports: Colon Polyp Genitourinary History: Reports: None 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 left shoulder pain. right shoulder pain. L wrist Fx ED 12/17/18. d/p ORIF L wrist 12/20/18. right hip/groin pain Neurological History: Reports: None Psychiatric History: Reports: Addiction, Anxiety, Depression, OCD Endocrine/Metabolic History: Reports: Osteopenia Hematologic History: Reports: Blood Transfusion(s) Immunologic History: Reports: None Oncologic (Cancer) History: Reports: None Dermatologic History: Reports: None - Infectious Disease History Infectious Disease History: Reports: Chicken Pox, Measles, Mumps - Past Surgical History HEENT Surgical History: Reports: Cataract Surgery GI Surgical History: Reports: Colonoscopy Female Surgical History: Reports: Tubal Ligation Musculoskeletal Surgical History: Reports: Hip Replacement, ORIF, Shoulder Surgery Other Musculoskeletal Surgeries/Procedures:: left wrist. LT CAM[place]O. Rt total hip 10/27/20 Social & Family History - Caffeine Use Caffeine Use: Reports: Coffee Review of Systems - Review of Systems Review Of Systems: See Below Constitutional: Reports: No Symptoms Eyes: Reports: No Symptoms Ears: Reports: No Symptoms Nose: Reports: No Symptoms Mouth/Throat: Reports: No Symptoms Respiratory: Reports: No Symptoms Cardiovascular: Reports: No Symptoms GI/Abdominal: Reports: No Symptoms Genitourinary: Reports: No Symptoms Musculoskeletal: Reports: Other (pt is having severe pain in the rt hip and it is markedly dislocated. ) Skin: Reports: No Symptoms ED EXAM, GENERAL - Physical Exam Exam: See Below Free Text/Narrative:: pt arrived very uncomfortable and having definite deformity of the rt hip with shortening. Exam Limited By: No Limitations General Appearance: Alert, Anxious, Severe Distress Ears: Normal TMs Nose: Normal Inspection Throat/Mouth: Normal Inspection Head: Atraumatic Neck: Normal Inspection Respiratory/Chest: No Respiratory Distress Cardiovascular: Regular Rate, Rhythm GI/Abdominal: Soft, Non-Tender (Female) Exam: Deferred Rectal (Female) Exam: Deferred Back Exam: Normal Inspection Extremities: Other ( rt hip is deformrd. She has a obvious dislocation of her new total hip. ) Neurological: Alert, Oriented, Normal Cognition, Other (pt is intoxicated. ) Psychiatric: Anxious Course - Vital Signs Last Recorded V/S: Last Vital Signs Temp 35.7 C L 12/17/20 22:56 Pulse 93 12/17/20 22:56 Resp 18 12/17/20 22:56 BP 148/40 H 12/17/20 22:56 Pulse Ox 95 12/17/20 22:56 - Orders/Labs/Meds Orders: Active Orders 24 hr Category Date Time Status Hip Min 1V Rt [CR] Stat Exams 12/18/20 01:04 Taken Hip Min 1V Rt [CR] Stat Exams 12/18/20 01:09 Taken Labs: Laboratory Tests 12/17/20 12/17/20 12/17/20 Range/Units 23:28 23:40 23:40 WBC 15.0 H (4.5-11.0) K/uL RBC 4.66 (3.30-5.50) M/uL Hgb 13.6 D (12.0-15.0) g/dL Hct 42.3 (36.0-48.0) % MCV 91 (80-98) fL MCH 29 (27-31) pg MCHC 32 (32-36) % Plt Count 263 (150-400) K/uL Neut % (Auto) 80.8 H (36-66) % Lymph % (Auto) 13.6 L (24-44) % [place] % (Auto) 4.9 (2-6) % Eos % (Auto) 0.3 L (2-4) % Baso % (Auto) 0.4 (0-1) % Sodium 148 (140-148) mmol/L Potassium 4.1 (3.6-5.2) mmol/L Chloride 108 (100-108) mmol/L Carbon Dioxide 28 (21-32) mmol/L Anion Gap 12.5 (5.0-14.0) mmol/L BUN 13 (7-18) mg/dL Creatinine 1.3 H D (0.6-1.0) mg/dL Est Cr Clr Drug Dosing 37.79 mL/min Estimated GFR (MDRD) 41 L (>60) Glucose 128 H (74-106) mg/dL Calcium 8.9 (8.5-10.1) mg/dL Total Bilirubin 0.2 (0.2-1.0) mg/dL AST 30 (15-37) U/L ALT 31 (12-78) U/L Alkaline Phosphatase 74 (46-116) U/L Total Protein 7.1 (6.4-8.2) g/dL Albumin 4.0 (3.4-5.0) g/dL Globulin 3.1 (2.3-3.5) g/dL Albumin/Globulin Ratio 1.3 (1.2-2.2) Ethyl Alcohol 165 mg/dL Meds: Medications Discontinued Medications Generic Name Dose Route Start Last Admin Trade Name Sonya PRN Reason Stop Dose Admin Diazepam 2 mg 12/17/20 23:07 12/17/20 23:12 Diazepam 10 Mg/2 Ml Syringe IVPUSH 12/17/20 23:08 2 mg ONETIME ONE Administration Diazepam Confirm 12/17/20 23:08 Diazepam 10 Mg/2 Ml Syringe Administered 12/17/20 23:09 Dose 10 mg .ROUTE .STK-MED ONE Diazepam 2 mg 12/17/20 23:54 12/17/20 23:57 Diazepam 10 Mg/2 Ml Syringe IVPUSH 12/17/20 23:55 2 mg ONETIME ONE Administration Hydromorphone HCl 1 mg 12/18/20 00:12 12/18/20 00:18 Hydromorphone 1 Mg/Ml Syringe IVPUSH 12/18/20 00:13 1 mg ONETIME ONE Administration Ketamine HCl Confirm 12/18/20 00:42 Ketamine 500 Mg/5 Ml Mdv Administered 12/18/20 00:43 Dose 500 mg .ROUTE .STK-MED ONE Propofol Confirm 12/18/20 00:42 Propofol 200 Mg/20 Ml Sdv Administered 12/18/20 00:43 Dose 200 mg .ROUTE .STK-MED ONE - Re-Assessments/Exams Free Text/Narrative Re-Assessment/Exam: 12/18/20 01:51 pt was having severe muscle spasm in the hip area. She was given valium total of 4 mg iv. She was also given dilaudid 1 mg iv. She did calm down alot ater the dilaudid. She had a xray which showed a superior anterior dislocation. anesthestia was called and with sedation reduction of the dislocation was acomplished with difficulty. pt did well with the sedation. Departure - Departure Time of Disposition: 01:54 Disposition: Home, Self-Care 01 Condition: Fair Clinical Impression: S/P closed reduction of dislocated total hip prosthesis - Discharge Information Referrals: PCP,None [Primary Care Provider] - Forms: ED Department Discharge Care Plan Goals: use tylenol for pain, cool pack the areza. follow up in ortho clinic. Sepsis Event Note (ED) - Evaluation Sepsis Screening Result: No Definite Risk - Focused Exam Vital Signs: Vital Signs Temp Pulse Resp BP Pulse Ox 12/17/20 22:56 35.7 C L 93 18 148/40 H 95 - My Orders Last 24 Hours: My Active Orders 12/18/20 01:04 Hip Min 1V Rt [CR] Stat 12/18/20 01:09 Hip Min 1V Rt [CR] Stat - Assessment/Plan Last 24 Hours: My Active Orders 12/18/20 01:04 Hip Min 1V Rt [CR] Stat 12/18/20 01:09 Hip Min 1V Rt [CR] Stat
--- NOTE | 2020-12-17 23:43 | CRLCR ---
For Patients: As a result of the Cures Act, medical imaging exams and procedure reports are released immediately into your electronic medical record. You may view this report before your referring provider. If you have questions, please contact your health care provider. Indication: Fell, right hip pain. Technique: Right hip 1 view. Comparison: Pelvis radiograph 10/27/2020. Findings: Right total hip arthroplasty in place. The femoral head component is dislocated superiorly relative to the acetabular component. No acute fracture identified. Degenerative changes of the pubic symphysis. Resolution of previously seen soft tissue gas. Impression: Superior dislocation of the right femoral head component relative to the acetabular component. Dictated by Lala Freeman MD @ 12/17/2020 11:40:56 PM (Electronically Signed)
[2020-12-18] MEDS ORDERED: HYDROmorphone 1 MG/ML Syringe IVPUSH ONE (00:12)
[2020-12-18] MEDS ORDERED: Ketamine 500 MG/5 ML MDV ONE (00:42)
[2020-12-18] MEDS ORDERED: Propofol 200 MG/20 ML SDV ONE (00:42)
--- NOTE | 2020-12-18 01:53 | PCM.SN.2 ---
- Free Text/Narrative Note: Was consulted on Mrs. Krishna on 12/17/20, after she took a fall off her patio step this evening, resulting in a dislocation of her right total hip prosthetic. Patient underwent right total hip arthroplasty with Dr. Park on 10/27/20 and had been doing quite well with her recovery until tonight. Patient was intoxicated during the incident and ethyl alcohol level was 156 with sample collected in ER. Dr. Gaitan requested possibly going to OR for reduction under general anesthetic due to intoxication, but after review with INSTRUMENT MAINTENANCE SUPERVISOR, decision was made to proceed with conscious sedation. On inspection, patient had multiple abrasions on forehead, but denied LOC. Right leg was shortened and internally rotated. Right distal extremity with temperature similar to that of left. I did appreciate right tibial pulse, 2+. Capillary refill to all right toes <3 seconds. Patient did wince in pain with light touch of right leg. As patient was intoxicated and unable to provide consent, proposed reduction treatment under conscious sedation procedure, risks, and benefits were discussed with patients spouse. Patients spouse provided verbal and written consent for this procedure. After sedation was in effect, with the assistance of Dr. Gaitan and IVANIA Redmond, pelvis was stabilized and Allis Maneuver was performed. Patient was still very contracted in her right quadriceps and hamstrings, making reduction difficult. Multiple attempts at reduction were made. Hanson a reduction that resulted in improved leg length and no malrotation of foot. As xray board was being placed for post-reduction film, reduction must have been unsuccessful, as leg again internally rotated and shortened. Xray confirmed that reduction was unsuccessful. Again, Allis Maneuver was utilized for reduction, and after a few attempts, a successful reduction was achieved. Post-reduction film confirmed successful reduction. I do not appreciate any acute fractures on post-reduction film. Leg lengths appeared symmetric with no malrotation of foot. Right knee was brought through full ROM. Right tibial pulse appreciated after reduction, 2+. Capillary refill to all toes appropriate, <3 seconds. Discussed post-reduction instructions with : * She may use protected weight bear as tolerated on right leg. They do not have her walker from surgery, so ER nurse Nyla agreed to set patient up with assistive device prior to discharge from ER. * states they no longer have abduction pillow either, so instructed to use a pillow for between legs. * Discussed at risk positions for recurrent dislocation to avoid: hyperextension, external rotation, and crossing legs should be avoided. * Pain control with extra-strength Tylenol. Patient did not tolerated opioids during her post-operative period, had severe nausea and emesis. Labs show declined eGFR, so would like to avoid Toradol. * Instructed to monitor neurovascular status of RLE tonight and through tomorrow. * Will call patient later this morning during clinic hours with orthopedic follow up appointment. * Patient's spouse expressed understanding of above plan.
--- NOTE | 2020-12-18 01:57 | CRLCR ---
For Patients: As a result of the Cures Act, medical imaging exams and procedure reports are released immediately into your electronic medical record. You may view this report before your referring provider. If you have questions, please contact your health care provider. Indication: Post reduction right hip. Technique: Right hip 1 view. Comparison: Right hip radiograph 12/17/2020. Findings: Right total hip arthroplasty in place. There is persistent superior dislocation of the right femoral head component relative to the acetabular component. No acute fracture identified. Degenerative changes of the pubic symphysis. Soft tissues are unremarkable. Impression: Persistent right hip dislocation. Dictated by Lala Freeman MD @ 12/18/2020 1:55:56 AM (Electronically Signed)
--- NOTE | 2020-12-18 01:59 | CRLCR ---
For Patients: As a result of the Cures Act, medical imaging exams and procedure reports are released immediately into your electronic medical record. You may view this report before your referring provider. If you have questions, please contact your health care provider. Indication: Post reduction. Technique: Right hip 1 view. Comparison: Right hip radiograph 12/18/2020 at 1:18 a.m. Findings: Right total hip arthroplasty in place. Interval reduction of the previously seen right hip dislocation. The components appear normally aligned. No acute fracture identified. Soft tissues are unremarkable. Impression: Interval reduction of the previously seen right hip dislocation. Dictated by Lala Freeman MD @ 12/18/2020 1:57:29 AM (Electronically Signed)
== END 2020-12-18 02:42 | disposition home or self-care (01) ==
LOC: JP.ED 22:53
DX: T84.020A Dislocation of internal right hip prosthesis, initial encounter (principal); E78.00 Pure hypercholesterolemia, unspecified; Z88.8 Allergy status to other drugs, medicaments and biological substances; Z79.899 Other long term (current) drug therapy; W10.9XXA Fall (on) (from) unspecified stairs and steps, initial encounter
CPT/HCPCS: 27250; 36415; 73501; 80053; 80307; 85025; 96374; 96375; 96376; 99284; J1170; J2704; J3360

== ENCOUNTER 2021-08-31 13:19 | Emergency (ER) | payer MEDICARE ==
[2021-08-31] MEDS ORDERED: Propofol 200 MG/20 ML SDV IVPUSH ONE (13:31)
[2021-08-31 15:20] VITALS: BP 134/71; PULSE 61
== END 2021-08-31 15:15 | disposition home or self-care (01) ==
LOC: JP.ED 13:19
DX: M24.451 Recurrent dislocation, right hip (principal); E78.00 Pure hypercholesterolemia, unspecified; M19.90 Unspecified osteoarthritis, unspecified site; Z88.8 Allergy status to other drugs, medicaments and biological substances; Z79.899 Other long term (current) drug therapy
CPT/HCPCS: 27250; 99284; J2704; 99283

== ENCOUNTER 2022-01-21 13:54 | Emergency (ER) | payer MEDICARE ==
[2022-01-21] MEDS ORDERED: Sodium Chloride 0.9% 10 ML Syringe FLUSH PRN (14:08)
[2022-01-21] MEDS ORDERED: Sodium Chloride 0.9% 1,000 ML IV SCH (14:15)
[2022-01-21] MEDS ORDERED: Propofol 200 MG/20 ML SDV ONE ×3 (14:27→14:49)
[2022-01-21] MEDS ORDERED: Succinylcholine 200 MG/10 ML MDV ONE (14:49)
[2022-01-21] MEDS ORDERED: Succinylcholine 200 MG/10 ML MDV IV ONE (14:56)
[2022-01-21] MEDS ORDERED: Propofol 200 MG/20 ML SDV IVPUSH ONE (15:01)
[2022-01-21 15:16] VITALS: PULSE 74
[2022-01-21 15:34] VITALS: BP 121/68
[2022-01-21] MEDS ORDERED: Acetaminophen/HYDROcodone 325-10 MG Tab PO ONE (16:13)
== END 2022-01-21 16:25 | disposition home or self-care (01) ==
LOC: JP.ED 13:54
DX: M24.451 Recurrent dislocation, right hip (principal); E78.00 Pure hypercholesterolemia, unspecified; Z79.899 Other long term (current) drug therapy; Z88.6 Allergy status to analgesic agent
CPT/HCPCS: 27265; 73501; 96360; 96361; 99283; A9270; J0330; J2704; J7030

== ENCOUNTER 2022-03-03 09:05 | Day surgery (SDC) | payer MEDICARE ==
[~2022-03-03 09:05] MED LIST: Midazolam 1 MG/ML 2 ML SDV ONE; Propofol 200 MG/20 ML SDV ONE; fentaNYL 100 MCG/2 ML SDV ONE
[2022-03-03] MEDS ORDERED: Nozin Nasal Sanitizer NASBOTH SCH (09:30)
[2022-03-03 09:52] LABS: ESTIMATED GFR 70 mL/min (>60)
[2022-03-03] MEDS ORDERED: Lactated Ringers 1,000 ML IV SCH (10:00)
[2022-03-03] MEDS ORDERED: Bupivacaine 0.5% 50 ML MDV ONE (10:00)
[2022-03-03] MEDS ORDERED: Propofol 200 MG/20 ML SDV ONE (10:14)
[2022-03-03] MEDS ORDERED: ceFAZolin 2 GM in Sodium Chloride 0.9% 50 ML IV ONE (10:30)
[2022-03-03] MEDS ORDERED: Lactated Ringers 1,000 ML ONE (11:18)
[2022-03-03] MEDS ORDERED: traMADol 50 MG Tab PO PRN (12:36)
[2022-03-03] MEDS ORDERED: Morphine 2 MG/ML SYRINGE IVPUSH PRN (12:36)
[2022-03-03] MEDS ORDERED: Ondansetron 4 MG Tab.DIS PO PRN (12:36)
[2022-03-03] MEDS ORDERED: Magnesium Hydroxide 400 MG/5 ML Susp 30 ML Cup PO PRN (12:36)
[2022-03-03] MEDS ORDERED: Gabapentin 300 MG Cap PO PRN (12:42)
[2022-03-03] MEDS ORDERED: ceFAZolin 1 GM in Sodium Chloride 0.9% 50 ML IV SCH (12:45)
[2022-03-03] MEDS ORDERED: Sodium Chloride 0.9% 1,000 ML IV SCH (12:45)
[2022-03-03] MEDS: Ketorolac 15 MG/ML SDV IVPUSH SCH ×2 (14:12→20:11)
[2022-03-03] MEDS: Acetaminophen 325 MG Tab PO SCH ×2 (15:30→21:44)
[2022-03-03] MEDS: ceFAZolin 1 GM in Premix Bag 1 BAG IV SCH (18:11)
[2022-03-03] MEDS ORDERED: Non-Formulary Medication 1 Each (Simvastatin [Zocor] 20 MG Tablet) PO SCH (21:00)
[2022-03-03] MEDS ORDERED: traZODone 50 MG Tab PO SCH (21:00)
[2022-03-03] MEDS ORDERED: Non-Formulary Medication 1 Each (Fluticasone/Salmeterol [Advair 100-50] 14 PUFF/DISKUS Dis INH SCH (21:00)
[2022-03-03] MEDS ORDERED: atorvaSTATin 20 MG Tab PO SCH (21:00)
[2022-03-03] MEDS ORDERED: Non-Formulary Medication 1 Each (Trazodone [Trazodone] 100 MG Tablet) PO SCH (21:00)
[2022-03-03] MEDS: Nozin Nasal Sanitizer NASBOTH SCH (21:43)
[2022-03-03] MEDS: Docusate Sodium 100 MG Cap PO SCH (21:44)
[2022-03-04] MEDS: Ketorolac 15 MG/ML SDV IVPUSH SCH ×2 (02:49→07:51)
[2022-03-04] MEDS: ceFAZolin 1 GM in Premix Bag 1 BAG IV SCH (02:55)
[2022-03-04] MEDS: Acetaminophen 325 MG Tab PO SCH ×2 (03:00→09:13)
[2022-03-04] MEDS: Nozin Nasal Sanitizer NASBOTH SCH (08:02)
[2022-03-04] MEDS: Docusate Sodium 100 MG Cap PO SCH (08:02)
[2022-03-04] MEDS ORDERED: FLUoxetine 20 MG Cap PO SCH (09:00)
[2022-03-04 10:27] VITALS: BP 101/66; PULSE 70
== END 2022-03-04 14:10 | disposition home or self-care (01) ==
LOC: JP.SDS 09:05 → JP.MS 12:36 → JP.SDS 03-04 14:10
PROVIDERS: ATTEND Specialist
DX: M24.451 Recurrent dislocation, right hip (principal); J44.9 Chronic obstructive pulmonary disease, unspecified; F41.9 Anxiety disorder, unspecified; E78.00 Pure hypercholesterolemia, unspecified; F17.200 Nicotine dependence, unspecified, uncomplicated; I25.10 Atherosclerotic heart disease of native coronary artery without angina pectoris; Z79.899 Other long term (current) drug therapy
CPT/HCPCS: 36415; 72170; 72170-26; 80053; 85027; 97110-GP; 97116-GP; 97161-GP; 97165-GO; 97535-GP; A9270-GY; C1713; C1776; J0690; J1885; J2250; J2704; J3010; J3490; J7030; J7120; Q0162

== ENCOUNTER 2023-11-01 06:42 | Day surgery (SDC) | payer MEDICARE ==
[2023-11-01] MEDS ORDERED: fentaNYL 100 MCG/2 ML SDV ONE (07:27)
[2023-11-01] MEDS ORDERED: Propofol 200 MG/20 ML SDV ONE (07:27)
[2023-11-01] MEDS: Sodium Chloride 0.9% 1,000 ML IV SCH (07:27)
[2023-11-01 09:21] VITALS: BP 127/62; PULSE 72
== END 2023-11-01 09:29 | disposition home or self-care (01) ==
LOC: JP.SDS 06:42
PROVIDERS: ATTEND Surgery
DX: Z12.11 Encounter for screening for malignant neoplasm of colon (principal); K57.30 Diverticulosis of large intestine without perforation or abscess without bleeding; J44.9 Chronic obstructive pulmonary disease, unspecified; Z88.8 Allergy status to other drugs, medicaments and biological substances
CPT/HCPCS: G0121; J2704; J3010; J7030; 00812-QZ

== ENCOUNTER → 2024-08-13 | Day surgery (SDC) | payer MEDICARE ==
[2024-08-13] MEDS: Lactated Ringers 1,000 ML IV SCH (07:14)
[2024-08-13] MEDS: Lidocaine 1% with EPINEPHrine 1:100,000 50 ML MDV ONE (08:48)
[2024-08-13 10:34] VITALS: BP 129/61; PULSE 66
== END ==
LOC: JP.SDS 06:57
PROVIDERS: ATTEND Surgery
DX: C67.8 Malignant neoplasm of overlapping sites of bladder (principal); F17.200 Nicotine dependence, unspecified, uncomplicated
CPT/HCPCS: 36561; 71045; 77001; C1788; C1894; J0665; J0690; J1642; J2250; J2704; J3010; J7120; 00532-QZ